=== PATIENT | female | born 1950 | race Caucasian/White ===

== ENCOUNTER 2016-07-26 09:51 | Day surgery (SDC) | payer OTHER, MEDICARE ==
[~2016-07-26] VITALS: Ht 167.6 cm; Wt 76.6 kg
[2016-07-26] VITALS (9 sets, daily range): BP systolic 112–136; BP diastolic 54–78; PULSE 68–96; RESP 12–18; O2SAT 97–99
[~2016-07-26 09:51] MED LIST: ASCO500C6 PO; CHOL400T PO; CeFAZolin Inj 2 GM in IV Premix 1 EACH IV ONE; GARL600T2 PO; MILK1CAP3 PO; MULT-1080 PO; OMEG1CAP56 PO; UBIQ75CA PO
[2016-07-26] MEDS ORDERED: Ondansetron 2 mg/mL 2 mL Inj ONE (09:52)
[2016-07-26] MEDS ORDERED: fentaNYL-PF 50 mCg/mL 2 mL Inj ONE (09:52)
[2016-07-26] MEDS ORDERED: Lidocaine PF 1% 30 mL Inj ONE (09:52)
[2016-07-26] MEDS ORDERED: EPHEDrine/NS 5 mg/mL 5 mL Syringe ONE (09:52)
[2016-07-26] MEDS ORDERED: Propofol 10,000 mCg/mL 20 mL Inj ONE (09:52)
[2016-07-26] MEDS ORDERED: Dexamethasone 4 mg/mL Inj ONE (09:52)
[2016-07-26] MEDS ORDERED: CeFAZolin Inj 2 gm / 50mL D5W IV ONE (11:00)
[2016-07-26] MEDS: Lactated Ringer's 1,000 ML IV SCH ×2 (11:14→12:12)
--- NOTE | 2016-07-26 12:06 | PCM.HPANE ---
Patient Data Surgeon Admitting Provider: Attending Provider:Geovanny Alcala MD Primary Care Physician:Yifan Treadwell MD Other Provider:Rosa Prateringham Anesthesia Reason for Visit Left Breast Cancer Ht/WT & BMI Height (Feet): 5 Height (Inches): 6 Weight (Kilograms): 76.6 Body Mass Index 27.00 Allergies Coded Allergies: No Known Allergies (Verified Allergy, Severe, 07/26/16) Past Anesthesia History Anesthesia History: Denies:: Abnormal Airway, Anesthesia Reactions Diabetes History Hx Diabetes?: No MRSA MRSA: No Medications Hypertension Medication: No Home Meds Incl Beta Mushtaq: No Reported Medications Multivits,Ca,Minerals/Iron/FA (Women's Daily Formula Caplet)500-18-0.4 Tablet1 Each PO DAILY 07/22/16 Cholecalciferol (Vitamin D3) (Vitamin D3)400 Unit Eyqfzl265 Unit PO DAILY 07/22/16 Ascorbic Acid (Vitamin C)500 Mg Capsule.er500 Mg PO DAILY 07/22/16 Ubiquinone (Ultra Coq10)75 Mg Xixmdsu08 Mg PO DAILY 07/22/16 [place]-3 Fatty Acids/Fish Oil ([place] 3 1,000 mg Softgel)1 Each Capsule1 Each PO DAILY 07/22/16 Milk Thistle Seed Extract (Milk Thistle)140 Mg Vrqcgja509 Mg PO DAILY 07/22/16 Garlic Extract (Garlipure)600 Mg Boixmg041 Mg PO DAILY 07/22/16 Discontinued Reported Medications Calcium Carbonate (Calcium)600 Mg Oeaypm030 Mg PO DAILY 07/22/16 Atenolol-Expunged Drug, Do Not Renew! 25 Mg Yfqrzp61 Mg PO AM 11/15/10 History History of ENT Problems?: No HEENT History: Denies:: Abnormal Airway Cataracts Glaucoma Hearing Problem Sinus Problem Hx of Heart Problems?: No Cardiovascular History: Denies:: Abdominal Aortic Aneurism Atrial Fibrillation Chest Pain Heart Murmur Hypertension Pacemaker Rheumatic Fever Thrombophlebitis Hx of Respiratory Problem?: No Respiratory History: Denies:: Asthma COPD Dyspnea Emphysema Hemoptysis Oxygen Administration Pneumonia Tuberculosis Use of C-PAP Machine Hx Neurologic Problems?: No Neurological History: Denies:: Alzheimer's Disease CVA Dementia Dizziness Headaches Multiple Sclerosis Parkinson's Disease Seizures Hx of GI Problems?: No Gastrointestinal History: Denies:: Cirrhosis Diverticulitis Gall Bladder Disease Gastroesphageal Reflux Heartburn Hepatitis Hiatal Hernia Liver Disease Rectal Bleeding Hx of Problems?: No Genitourinary History: Denies:: HX of Hemodialysis Kidney Stones Urinary Tract Infection Female Hx: Positive for:: Problems with Breasts? (left breast current admission problem ) Denies:: Currently (POST MENOPAUSAL) Endometriosis Pelvic Inflammatory Skin History: Denies:: History Skin Disorders? Pressure Ulcers Hx Musculoskeletal Problems?: No Musculoskeletal History: Denies:: Back Injury Fibromyalgia Joint Replacement Musculoskeletal Trauma Osteoarthritis Rheumatoid Arthritis Hx of Psycho/Social Problems?: No Psycho Social History: Denies:: Anxiety Bipolar Disorder Hx Depression Hx Surgeries?: Yes (LEEP, hysteroscopy) Hx Any Other Health Problems?: Yes Other History: Positive for:: Cancer (left breast admission problem ) Denies:: Endocrine Disease Hospitalization Thyroid Disease History Blood Transfusions: Positive for:: Accept Blood Products? Denies:: Blood Transfusions Hx Diabetes: No Hx Alcohol Use: NoAlcoholic Drinks Per Day: holidays onlyHx Substance Use: No Smoking Status: Unknown if Ever Smoker Have You Smoked inLast 12 mo: No Stop/Bang S-Snoring: Do You Snore Loudly: No T-Tired: feel tired, fatigued: No O-Obsered: Observed not breath: No P-Blood Pressure: treated: No B- Body Mass Index > 35 kg/m2: No A- Age over 50: Yes N- Neck Large Circumference: No G- Gender Male: No BERT Total Score: 1 Risk Assessment Category Category 1A: Patient has history of documented sleep apnea, and HAS NOT received any narcotic, sedative or anesthesia administration during this stay. Category 1B: Patient has history of documented sleep apnea, and HAS received any narcotic , sedative or anesthesia administration during this stay Category 2: Patient has SUSPECTED Obstructive Sleep Apnea, and HAS received any narcotic , sedative or anesthesia administration during this stay. Category 3: Patient has SUSPECTED Obstructive Sleep Apnea and HAS NOT received narcotic, sedative or anesthesia administration during this stay. Category 4: Outpatient in Procedural Areas with known sleep apnea or who screen positive for High Risk via the STOP/BANG questionnaire. Exam Exam Vital Signs Vital Signs Date Time Temp Pulse Resp B/P Pulse Ox O2 Delivery O2 Flow Rate FiO2 07/26/16 10:54 35.7 70 16 131/70 99 Room Air General Appearance: Alert, Oriented X3, Cooperative, No Acute Distress HEENT/AIRWAY: MP 2 Lungs: Clear to Auscultation, Normal Air Movement Heart: Exam Unremarkable, Regular Rate/Rhythm, No Murmurs/Rubs/Gallops Meds/Labs/Diagnostics Admission Meds Current Medications Lactated Ringer's (Lr) 1,000 ml @ 120 mls/hr Q8H20M IV Last administered on t 11:14; Start 07/26/16 at 05:00; Stop 07/26/16 at 13:19 Plan Impression Patient chart reviewed, patient interviewed and anesthestic plan with risks, benefits, and alternatives discussed, and informed consent obtained. NPO Status: 07/25 ASA Physical Status: ASA2 Mod Systemic Disease Anesthetic Plan: GA Bene/Risks/Altern/Consents: Yes HP Complete Prior to Induction: Yes Xavier Abraham MD Jul 26, 2016 11:43
[2016-07-26] MEDS ORDERED: Bupivacaine 0.5%/EPI 50 mL Inj INFILTRATE ONE (12:30)
[2016-07-26] MEDS ORDERED: Lactated Ringer's 500 ML IV PRN (12:52)
[2016-07-26] MEDS ORDERED: Lactated Ringer's 1,000 ML IV SCH (12:52)
[2016-07-26] MEDS ORDERED: fentaNYL-PF 50 mCg/mL 2 mL Inj IVPUSH PRN (12:55)
[2016-07-26] MEDS ORDERED: MetoCLOpramide 5 mg/mL 2 mL Inj IVPUSH PRN (12:55)
[2016-07-26] MEDS ORDERED: HYDROmorphone 1 mg/mL Inj IVPUSH PRN (12:55)
[2016-07-26] MEDS ORDERED: Dexamethasone 4 mg/mL Inj IVPUSH PRN (12:55)
[2016-07-26] MEDS ORDERED: EPHEDrine Sulfate 50 mg/mL Inj IVPUSH PRN (12:55)
[2016-07-26] MEDS ORDERED: Atropine 0.4 mg/mL Inj IVPUSH PRN (12:55)
[2016-07-26] MEDS ORDERED: Ondansetron 2 mg/mL 2 mL Inj IVPUSH PRN (12:55)
[2016-07-26] MEDS ORDERED: Phenylephrine 10,000 mCg/mL Inj IVPUSH PRN (12:55)
--- NOTE | 2016-07-26 13:14 | PCM.DISURG ---
Surgical Discharge Instruction Date of Service Jul 26, 2016 Dates of Hospitalization Date of Hospital Admission Providers Admitting Physician: Primary Care Physician: Yifan Treadwell MD Attending Physician: Geovanny Alcala MD Discharge Diagnosis Discharge Diagnosis Left breast cancer Diet Discharge Diet: No restrictions Activity Discharge Activity-General: No restrictions, Activity as pain allows Dressing and Incisional Care Dressing Care: Allow Steri Stripes to fall off, Remove outer dressing after 24 hrs Hygiene: May shower after (24 hours) Follow Up Plan Follow Up Plan With Dr. Alcala in 10-14 days Call your provider for: Fever, Vomiting, Discharge @ incision, pus discharge Geovanny Alcala MD Jul 26, 2016 13:14
[2016-07-26] MEDS ORDERED: HYDROcodone-APAP 5-325 mg Tablet PO PRN (13:15)
--- NOTE | 2016-07-26 13:21 | PCM.SURGOP ---
Surgical Operative Report Date of Service: Jul 26, 2016 Pre Operative Diagnosis Left breast cancer Post Operative Diagnosis Same Procedure: Wire localized left partial mastectomy, left axillary sentinel lymph node biopsy Surgeon and Assistant Hairstylist: Surgeon: Geovanny Alcala MD Assistants: Abdias Hammer PA-C Indication for Procedure 66-year-old woman who had a new finding on screening mammogram with a 1.1 cm irregular density in the left breast 3:00 posterior depth. Her biopsy showed invasive mammary carcinoma, micropapillary subtype, poorly differentiated. After discussion of risks and benefits, she agreed to proceed with wire localized left partial mastectomy, left axillary sentinel lymph node biopsy. Findings: There were 2 sentinel nodes. The first sentinel node had an ex vivo count of 652. The second sentinel node had an ex vivo count of 452. The background count in the left axilla was 10. Procedure Details Preoperatively, the patient underwent wire localization in the breast [facility]. She then underwent radiotracer injection into the left breast periareolar tissue in day surgery. She was brought to the operating room where she underwent smooth induction of general anesthesia with an LMA. She was placed in the supine position with the left arm out, and was prepped and draped in wide sterile fashion. There was an excellent radiotracer signal in the left axilla, so methylene blue was not utilized. A procedural pause was performed according to the SCOAP checklist, and all were found to be in agreement. A radial incision was made in the left breast lower outer quadrant, just medial to the wire, which was coming from a lateral to medial direction. Skin flaps were raised superiorly and inferiorly. The wire was delivered into the wound. Circumferential dissection was carried out, using the wire as a guide, down to the pectoralis muscle. Left breast tissue was dissected free, oriented with suture, and a specimen radiograph was obtained. This confirmed that the radiographic marker had been successfully localized, along with the lesion. That tissue was sent for permanent pathology. Because the lesion looked somewhat close to the lateral aspect of the tissue on specimen radiograph, a separate lateral margin was obtained with electrocautery. This was oriented with suture, and sent for permanent pathology. The breast parenchyma was closed with an interrupted 3-0 Vicryl suture, and the skin incision was closed with a running 4-0 Vicryl subcuticular stitch. A curvilinear incision was made at the inferior border of the hairbearing skin in the left axilla. Dissection was carried down with electrocautery until the axillary fascia was incised. Using the gamma probe as a guide, the area of maximum radiotracer activity was isolated and dissected free. There were 2 separate sentinel nodes. The first sentinel node was dissected free, and the ex vivo gamma count was 652. It was soft and normal in size. It was sent for permanent pathology. The second sentinel node was excised. Its ex vivo gamma count was 452. It was soft and normal in size. It was sent for permanent pathology. The background count in the left axilla was 10. The axillary fascia was closed with an interrupted 3-0 Vicryl suture. The skin incision was closed with a running 4-0 Vicryl subcuticular stitch. Steri-Strips and sterile dressings were applied. At the end of the case all needle and sponge counts were correct 2. The patient was awakened from anesthesia without difficulty, and taken to the recovery room in satisfactory condition, having tolerated the procedure well. Complications There were no periprocedural complications identified. Surgical Specimen Removed: Yes Specimen sent to Pathology: Yes Surgical Specimen description: Left breast tissue. Left breast lateral margin. Left axillary sentinel node #1. Left axillary sentinel node #2. Anesthetic Plan: GA Grafts, Implants: None Output, Estimated Blood Loss: 10 Blood Administration during zimmerman: No Drains: None Catheters: None copies to: Yifan Treadwell MD; Rodney Allen MD, Joshua D MD Jul 26, 2016 13:21
--- NOTE | 2016-07-26 14:16 | PCM.ANEP1 ---
Post Anesthesia Phase 1 PACU Phase 1 Assessment Date of Service: Jul 26, 2016 Vital Signs Vital Signs Date Time Temp Pulse Resp B/P Pulse Ox O2 Delivery O2 Flow Rate FiO2 07/26/16 13:50 74 13 112/54 98 Room Air 07/26/16 13:45 76 15 116/57 98 Room Air 07/26/16 13:40 36.1 74 13 116/58 98 Room Air 07/26/16 13:35 79 12 117/55 99 Room Air 07/26/16 13:30 84 13 125/56 98 Room Air 07/26/16 13:25 90 18 130/57 98 Room Air 07/26/16 13:23 36.2 96 18 136/57 97 Room Air 07/26/16 10:54 35.7 70 16 131/70 99 Room Air Anesthetic Administered: GA Level of Alertness: Awake, talking TRENT's with Equal Strength: Yes Pain: No Nausea or Vomiting: No Oxygen Delivery: Room Air Lungs: Clear to Auscultation, Normal Air Movement Dermatome Level: Full Sensation Xavier Abraham MD Jul 26, 2016 14:16
--- NOTE | 2016-07-26 14:18 | PCM.ANEP2 ---
Post Anesthesia Evaluation ASA/CMS Post Anesthesia VS in Patient's Normal Range?: Yes Resp Stable; Airway Patent?: Yes CV Function & Hydration Stable: Yes Mental Status Recovered?: Yes Pain control Satisfactory?: Yes N/V Control Satisfactory?: Yes Xavier Abraham MD Jul 26, 2016 14:18
--- NOTE | 2016-07-26 16:52 | DRSDI ---
PROCEDURE: NM SENTINEL NODE INJECTION ONLY, LEFT BREAST RADIOPHARMACEUTICAL: 0.5 mCi Millipore filtered Tc-99m sulfur colloid. INDICATIONS: left breast cancer PROCEDURE: The indications, alternatives, benefits, risks, and complications of the procedure were explained to the patient. Written informed consent was obtained and placed in the chart. The area around the nip ple was prepped and draped in a sterile fashion. Tc-99m sulfur colloid was injected in the outer edg e of the areola in the left breast. No image was obtained. IMPRESSION: Administration of radiotracer into the left breast periareolar region for intra-operativ e sentinel lymph node localization. Dictated by: Susie Polanco M.D. on 07/26/2016 at 16:51 Approved by: Susie Polanco M.D. on 07/26/2016 at 16:51
--- NOTE | 2016-07-27 07:17 | DRSDI ---
SPECIMEN LEFT BREAST: 07/26/2016 CLINICAL: Breast specimen. Correlation is made to exams dated: 07/26/2016 mammogram, 06/28/2016 stereotactic biopsy, 06/23/2016 ult rasound, and 06/23/2016 mammogram - [facility]. A lumpectomy specimen was imaged for the previous biopsy site located in the left breast at 3 o'cloc k posterior depth. This was described on the previous mammography and biopsy reports. IMPRESSION: SPECIMEN The imaged specimen includes the lesion, a biopsy clip, and the distal portion of the localization wi re. Waiting for pathology results. A final report will be issued when these become available. This exam was interpreted at Station ID: [id number]. Kana moore/pierre:07/26/2016 14:03:04 Additional referring physicians: TU AKINS
--- NOTE | 2016-07-28 15:38 | PATH ---
SURGICAL PATHOLOGY Attending Physician:Forest Lang CASE STATUS: Signed Out PATIENT NAME: KRISTIN GILLILAND PID: [id number] : 1950 DATE COLLECTED:07/26/2016 20:51 SPECIMEN: 1: Breast, Simple Mastectomy (lymph nodes submitted separately) 2: Breast Margin 3: [place] Lymph Node 4: [place] Lymph Node CLINICAL HISTORY: LEFT BREAST CANCER 1). LEFT BREAST TISSUE, SHORT STITCH SUPERIOR, LONG LATERAL OOB-12:43 TIF 12:48 2). LEFT LATERAL MARGIN, SHORT SITITCH SUPERIOR, LONG POSTERIOR OOB 12:49 TIF 12:50 3). LEFT AXILLARY SENTINEL NODE #1 OOB 12:58 TIF 13:00 4). LEFT AXILLARY SENTINEL NODE #2 OOB 13:01 TIF 13:02 FINAL DIAGNOSIS: 1.LEFT BREAST, WIRE-GUIDED PARTIAL MASTECTOMY WITH IMAGE-GUIDED LOCALIZATION: INVASIVE CARCINOMA OF THE BREAST. TUMOR SITE: 3 O' CLOCK (PER PRIOR CORE BIOPSY REPORT) TUMOR SIZE: 7 X 5 MM (SEE COMMENT) HISTOLOGIC TYPE: INVASIVE MICROPAPILLARY CARCINOMA HISTOLOGIC GRADE: CARLEY HISTOLOGIC SCORE Glandular/Tubular differentiation: Score 3 Nuclear Pleomorphism: Score 3 Mitotic Rate: Score 2 Overall Grade: Grade 8/9 TUMOR FOCALITY: SINGLE FOCUS OF INVASIVE CARCINOMA DUCTAL CARCINOMA IN SITU (DCIS): PRESENT Size (Extent) of DCIS: SINGLE FOCUS, 1 MM, LOCATED 1.2 CM MEDIAL TO THE INVASIVE CARCINOMA Architectural patterns: MICROPAPILLARY Nuclear grade: Grade 3 (HIGH) Necrosis: NOT IDENTIFIED MARGINS INVASIVE CARCINOMA: ALL MARGINS ARE UNINVOLVED BY INVASIVE CARCINOMA DISTANCE FROM CLOSEST MARGINS: LATERAL MARGIN 2MM (SEE PART 2 FOR ADDITIONAL LATERAL MARGIN TISSUE; FINAL LATERAL MARGIN NEGATIVE) INFERIOR MARGIN: 5 MM DUCTAL CARCINOMA IN SITU: MARGINS ARE UNINVOLVED BY DCIS ALL MARGINS ARE GREATER THAN 1.0 CM FROM DCIS LYMPH-VASCULAR INVASION: NOT IDENTIFIED PATHOLOGIC STAGING: AJCC, 7th ed., 2010 PRIMARY TUMOR: pT1b REGIONAL LYMPH NODES: pN0 (sn) ADDITIONAL PATHOLOGIC FINDINGS: PRIOR CORE BIOPSY SITE IDENTIFIED ADJACENT TO INVASIVE CARCINOMA ANCILLARY STUDIES: Biomarkers Performed Previously on Case: [place] AND [place] STUDIES WERE PERFORMED ON THE PRIOR CORE BIOPSY, SEE THAT REPORT FOR RESULTS 2.LEFT BREAST, ADDITIONAL LATERAL MARGIN: BENIGN BREAST TISSUE. Negative for in situ and invasive carcinoma. 3.LEFT AXILLARY SENTINEL NODE #1: ONE LYMPH NODE IDENTIFIED, NEGATIVE FOR METASTATIC CARCINOMA (0/1). 4.LEFT AXILLARY SENTINEL NODE #2: ONE LYMPH NODE IDENTIFIED, NEGATIVE FOR METASTATIC CARCINOMA (0/1). ICD10 CODE C50.912 NOTE: The size of the invasive carcinoma identified on the microscopic slides is 7 x 5 mm. The prior core biopsy cavity is immediately adjacent to the invasive tumor. The prior core biopsy pathology reported 2 mm of tumor. Thus, the total maximum diameter of the invasive tumor estimated by microscopic pathology is 9 mm. GROSS DESCRIPTION: The specimens are received in formalin, labeled with the patient's name, and sublabeled as the following: (1) left breast tissue; (2) left lateral margin; (3) left axillary sentinel node #1; (4) left axillary sentinel node #2. (1) The specimen consists of a piece of breast tissue (4.5 cm AP, 2.0 cm SI, 5.5 cm ML) with no overlying skin. The specimen is oriented with 2 black sutures (short-superior, long-lateral). A localization wire is present. The specimen is serially sectioned ML into 18 slices with deep medial and lateral resection margins as slices #1 and #18 respectively. The breast tissue is fatty and contains a mena-white solid cystic irregular mass (1.5 x 1.1 x 0.8 cm) within slices #12-#17. The mass is 1.1 cm from the anterior, 2.2 cm from the posterior, 1.8 cm from the superior, 0.5 cm from the inferior, 3.8 cm from the medial, and 0.2 cm from the lateral resection margins. No other nodules, masses or lesions are identified. Ink code: purple-anterior; yellow-posterior; black-superior; orange-inferior; green-medial; blue-lateral. Section code: (1A) medial resection margin, perpendicularly sectioned, entirely submitted; (1B-1C) slice #11, tissue adjacent to mass, bisected and submitted AP, entirely submitted; (1D-1E) slice #12, bisected and submitted AP, entirely submitted; (1F) slice #13, bisected AP, anterior half submitted; (1G) slice #14, bisected AP, anterior half submitted; (1H) slice #15, bisected AP, anterior half submitted; (1I) slice #16, bisected AP, anterior half submitted; (1J) slice #17, entirely submitted; (1K) lateral resection margin, perpendicularly sectioned, entirely submitted. (2) The specimen consists of a piece of breast tissue (3.2 cm AP, 3.9 cm SI, 1.1 cm ML) with no overlying skin. The specimen is oriented with 2 black sutures (short-superior, long-posterior). No localization wire is present. The breast tissue is fatty with no nodules, masses or lesions identified. Ink code: purple-anterior; yellow-posterior; black-superior; orange-inferior; green-medial; blue-lateral. Section code: (2A-2F) breast tissue, serially sectioned and submitted SI, 2 slices in each cassette. Specimen entirely submitted. (3) The specimen consists of a lymph node (0.8 x 0.6 x 0.5 cm). Section code: (3A) one lymph node, trisected. Specimen entirely submitted. (4) The specimen consists of a lymph node (1.2 x 0.8 x 0.4 cm). Section code: (4A) one lymph node, serially sectioned. Specimen entirely submitted. Note: Approximate total fixation time in formalin for all specimens-29 hours and 30 minutes calculated using a collection date of July 26, 2016 with times in fixative [id number]. 07/27/16 JM MICRO DESCRIPTION: 1. Microscopic sections of the area of the mass identified on the gross specimen included the core biopsy cavity and reactive changes in addition to the invasive tumor. The actual size of the invasive carcinoma measured on microscopic slides (slices 16 and 17) is 7 x 5 mm. The biopsy cavity is immediately adjacent to this, suggesting a slightly larger size prior to the core biopsy. A single focus of DCIS is identified on slide 1D, slice 12. Please see diagnostic field for additional details. ICD-9 CODES: CPT CODES: 1: 83264 2: 59429 3: 78839 4: 31364 Electronically Signed Out Fern Potter MD [facility] Pathology [facility] [address], [place] [address] Technical component performed at [facility], [facility] [address], [place], [address]
== END 2016-07-26 23:59 | disposition home or self-care (01) ==
LOC: SAS 09:51
PROVIDERS: ATTEND Student in an Organized Health Care Education/Training Program
DX: C50.912 Malignant neoplasm of unspecified site of left female breast (principal)

== ENCOUNTER 2016-08-12 08:51 | Day surgery (SDC) | payer OTHER, MEDICARE ==
[~2016-08-12] VITALS: Ht 168.9 cm; Wt 75.8 kg
[2016-08-12] MEDS ORDERED: Ondansetron 2 mg/mL 2 mL Inj ONE (08:52)
[2016-08-12] MEDS ORDERED: Ketamine 10 mg/mL 20 mL Inj ONE (08:52)
[2016-08-12] MEDS ORDERED: Dexamethasone 4 mg/mL Inj ONE (08:52)
[2016-08-12] MEDS ORDERED: Propofol 10,000 mCg/mL 20 mL Inj ONE (08:52)
[2016-08-12] MEDS ORDERED: fentaNYL-PF 50 mCg/mL 2 mL Inj ONE (08:52)
[2016-08-12] MEDS: Lactated Ringer's 1,000 ML IV SCH ×2 (08:55→11:28)
[2016-08-12 09:08] VITALS: BP 129/62; PULSE 81; RESP 12; O2SAT 99
[2016-08-12] MEDS ORDERED: Lactated Ringer's 1,000 ML IV SCH (10:46)
--- NOTE | 2016-08-12 10:46 | PCM.HPANE ---
Patient Data Date of Service: Aug 12, 2016 Surgeon Admitting Provider: Attending Provider:Geovanny Alcala MD Primary Care Physician:Neil Other Provider:Uzair Prater Anesthesia Reason for Visit Left Breast Cancer Ht/WT & BMI Height (Feet): 5 Height (Inches): 6.50 Weight (Kilograms): 75.800 Body Mass Index 26.00 Allergies Coded Allergies: No Known Allergies (Verified Allergy, Severe, 07/26/16) Past Anesthesia History Anesthesia History: Denies:: Abnormal Airway, Anesthesia Reactions Diabetes History Hx Diabetes?: No MRSA MRSA: No Medications Home Meds Incl Beta Mushtaq: No Reported Medications Multivits,Ca,Minerals/Iron/FA (Women's Daily Formula Caplet)500-18-0.4 Tablet1 Each PO DAILY 07/22/16 Cholecalciferol (Vitamin D3) (Vitamin D3)400 Unit [id number] Unit PO DAILY 07/22/16 Ascorbic Acid (Vitamin C)500 Mg Capsule.er500 Mg PO DAILY 07/22/16 Ubiquinone (Ultra Coq10)75 Mg [id number] Mg PO DAILY 07/22/16 [place]-3 Fatty Acids/Fish Oil ([place] 3 1,000 mg Softgel)1 Each Capsule1 Each PO DAILY 07/22/16 Milk Thistle Seed Extract (Milk Thistle)140 Mg [id number] Mg PO DAILY 07/22/16 Garlic Extract (Garlipure)600 Mg [id number] Mg PO DAILY 07/22/16 History History of ENT Problems?: No HEENT History: Denies:: Abnormal Airway Cataracts Hearing Problem Sinus Problem Denture Type: None Teeth Condition: Within Normal Limits Hx of Heart Problems?: No Cardiovascular History: Denies:: Abdominal Aortic Aneurism Atrial Fibrillation Chest Pain Heart Murmur Hypertension Pacemaker Rheumatic Fever Thrombophlebitis Hx of Respiratory Problem?: No Respiratory History: Denies:: Asthma COPD Dyspnea Emphysema Hemoptysis Oxygen Administration Pneumonia Tuberculosis Use of C-PAP Machine Hx Neurologic Problems?: No Neurological History: Denies:: Alzheimer's Disease CVA Dementia Dizziness Headaches Multiple Sclerosis Parkinson's Disease Seizures Hx of GI Problems?: No Hx of Problems?: No Genitourinary History: Denies:: HX of Hemodialysis Kidney Stones Urinary Tract Infection Female Hx: Positive for:: Problems with Breasts? (left breast current admission problem ) Denies:: Currently (POST MENOPAUSAL) Endometriosis Pelvic Inflammatory Skin History: Denies:: History Skin Disorders? Pressure Ulcers Hx Musculoskeletal Problems?: No Musculoskeletal History: Denies:: Back Injury Joint Replacement Musculoskeletal Trauma Hx of Psycho/Social Problems?: No Psycho Social History: Denies:: Anxiety Bipolar Disorder Hx Depression Hx Surgeries?: Yes (LEEP, hysteroscopy) Hx Any Other Health Problems?: Yes Other History: Positive for:: Cancer (left breast admission problem ) Denies:: Endocrine Disease Hospitalization Thyroid Disease History Blood Transfusions: Denies:: Blood Transfusions Hx Diabetes: No Hx Alcohol Use: NoHx Substance Use: No Smoking Status: Unknown if Ever Smoker Have You Smoked inLast 12 mo: No Stop/Bang Treated for Sleep Apnea?: No Do You Have a CPAP Machine?: No S-Snoring: Do You Snore Loudly: No T-Tired: feel tired, fatigued: No O-Obsered: Observed not breath: No P-Blood Pressure: treated: No B- Body Mass Index > 35 kg/m2: No A- Age over 50: Yes N- Neck Large Circumference: No G- Gender Male: No BERT Total Score: 1 BERT Risk Assessment: Low Risk, <3 Yes Risk Assessment Category Category 1A: Patient has history of documented sleep apnea, and HAS NOT received any narcotic, sedative or anesthesia administration during this stay. Category 1B: Patient has history of documented sleep apnea, and HAS received any narcotic , sedative or anesthesia administration during this stay Category 2: Patient has SUSPECTED Obstructive Sleep Apnea, and HAS received any narcotic , sedative or anesthesia administration during this stay. Category 3: Patient has SUSPECTED Obstructive Sleep Apnea and HAS NOT received narcotic, sedative or anesthesia administration during this stay. Category 4: Outpatient in Procedural Areas with known sleep apnea or who screen positive for High Risk via the STOP/BANG questionnaire. Exam Exam Vital Signs Vital Signs Date Time Temp Pulse Resp B/P Pulse Ox O2 Delivery O2 Flow Rate FiO2 08/12/16 09:08 35.6 81 12 129/62 99 Room Air General Appearance: Alert, Oriented X3, Cooperative, No Acute Distress HEENT/AIRWAY: MP 2 Lungs: Clear to Auscultation, Normal Air Movement Heart: Exam Unremarkable, Regular Rate/Rhythm, No Murmurs/Rubs/Gallops Meds/Labs/Diagnostics Admission Meds Current Medications Lactated Ringer's (Lr) 1,000 ml @ 120 mls/hr [id number] IV Last administered on t 08:55; Start 08/12/16 at 05:00; Stop 08/12/16 at 13:19 Plan Impression Patient chart reviewed, patient interviewed and anesthestic plan with risks, benefits, and alternatives discussed, and informed consent obtained. ASA Physical Status: ASA2 Mod Systemic Disease Anesthetic Plan: MAC Bene/Risks/Altern/Consents: Yes HP Complete Prior to Induction: Yes Idris Montalvo DO Aug 12, 2016 10:46
[2016-08-12] MEDS ORDERED: Ondansetron 2 mg/mL 2 mL Inj IVPUSH PRN (10:50)
[2016-08-12] MEDS ORDERED: MetoCLOpramide 5 mg/mL 2 mL Inj IVPUSH PRN (10:50)
[2016-08-12] MEDS ORDERED: HepLOK Flush 100 unit/mL 5 mL Inj IVFLUSH ONE (11:30)
[2016-08-12] MEDS ORDERED: Lidocaine PF 1% 30 mL Inj NERVEBLOCK ONE (11:30)
[2016-08-12] MEDS ORDERED: Bupivacaine-MPF 0.5% W/EPI 30 mL Inj INFILTRATE ONE (11:30)
[2016-08-12 12:17] VITALS: BP 114/52; PULSE 74; RESP 16; O2SAT 100
--- NOTE | 2016-08-12 12:28 | PCM.DISURG ---
Surgical Discharge Instruction Date of Service Aug 12, 2016 Dates of Hospitalization Date of Hospital Admission Providers Admitting Physician: Primary Care Physician: Neil Attending Physician: Geovanny Alcala MD Discharge Diagnosis Discharge Diagnosis Left breast cancer Diet Discharge Diet: No restrictions Activity Discharge Activity-General: No restrictions Dressing and Incisional Care Dressing Care: Allow Steri Stripes to fall off, Remove outer dressing after 24 hrs Hygiene: May shower after (24 hours) Follow Up Plan Follow Up Plan With Dr. Guerrero as directed. Call your provider for: Fever, Discharge @ incision, pus discharge Geovanny Alcala MD Aug 12, 2016 12:28
[2016-08-12] MEDS ORDERED: HYDROcodone-APAP 5-325 mg Tablet PO PRN (12:30)
--- NOTE | 2016-08-12 12:31 | PCM.SURGOP ---
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 Plans have been made to treat her with adjuvant Herceptin. After discussion of risks and benefits, she agreed to proceed with Port-A-Cath placement. Findings: The catheter tip was positioned at the cavoatrial junction. Procedure Details After smooth induction of monitored anesthesia care, the patient was positioned in the supine position with both arms tucked. The patient was prepped and draped in wide sterile fashion. A procedural pause was performed according to the SCOAP checklist, and all were found to be in agreement. The patient was placed in Trendelenburg position. The left subclavian vein was accessed with a finder needle in a single pass, and the 0.035 inch wire was passed into the vena cava. It was confirmed with fluoroscopy. A subcutaneous pocket was created on the left upper chest wall using electrocautery. The port reservoir was secured to the fascia with interrupted 3-0 Vicryl sutures. The catheter was connected to the tunneler, and tunneled under the subcutaneous tissue to the venipuncture site. The introducer sheath and dilator was passed over the wire under fluoroscopic guidance. The catheter was then passed through the tear-away sheath into the vena cava. The sheath was removed. The catheter was then pulled back under fluoroscopic guidance until the tip was positioned at the cavoatrial junction. The catheter was cut to size, and connected to the port reservoir. The low-profile port was used. The port was accessed using a Myers needle, which aspirated and flushed easily. The port was then flushed with the final heparin flush, consisting of 100 units per mL, a total of 4 mL. A final fluoroscopic image confirmed that the port was in good position with no kinks, and there was no evidence of pneumothorax. The incision was closed with a running 4-0 Monocryl subcuticular stitch. Steri- Strips and sterile dressings were applied. At the end of the case all needle and sponge counts were correct 2. The patient was awakened from anesthesia without difficulty, and taken to the recovery room in satisfactory condition, having tolerated the procedure well. Complications There were no periprocedural complications identified. Surgical Specimen Removed: No Specimen sent to Pathology: Not applicable Anesthetic Plan: MAC Grafts, Implants: Implants-See Implant Record Output, Estimated Blood Loss: 5 Blood Administration during zimmerman: No Drains: None Catheters: None copies to: Rodney Allen MD, Joshua D MD Aug 12, 2016 12:31
[2016-08-12 12:38] VITALS: BP 122/64; PULSE 56; RESP 18; O2SAT 98
[2016-08-12 13:14] VITALS: BP 110/57; PULSE 63; RESP 18; O2SAT 99
--- NOTE | 2016-08-12 13:36 | PCM.ANEP1 ---
Post Anesthesia Phase 1 PACU Phase 1 Assessment Date of Service: Aug 12, 2016 Vital Signs Vital Signs Date Time Temp Pulse Resp B/P Pulse Ox O2 Delivery O2 Flow Rate FiO2 08/12/16 13:14 63 18 110/57 99 Room Air 08/12/16 12:38 56 18 122/64 98 Room Air 08/12/16 12:17 36.3 74 16 114/52 100 Room Air 08/12/16 09:08 35.6 81 12 129/62 99 Room Air Anesthetic Administered: MAC Level of Alertness: Awake, talking TRENT's with Equal Strength: Yes Pain: No Nausea or Vomiting: No Cardiovascular Function and Hy: Yes Lungs: Clear to Auscultation, Normal Air Movement Dermatome Level: Full Sensation Complications: No Follow up Care: No Idris Montalvo DO Aug 12, 2016 13:36
== END 2016-08-12 23:59 | disposition home or self-care (01) ==
LOC: SAS 08:51
PROVIDERS: ATTEND Student in an Organized Health Care Education/Training Program
DX: C50.912 Malignant neoplasm of unspecified site of left female breast (principal); Z17.0 Estrogen receptor positive status [ER+]
CPT/HCPCS: 36561; 77001; C1788; J0690; J1100; J1642; J2250; J2405; J3010; J7120